=== PATIENT | female | born 1960 | race Caucasian/White ===

== ENCOUNTER → 2018-02-10 | Outpatient (CLI) | payer BC, OTHER | LOC: M RAD 08:58 | DX: Z12.31 Encounter for screening mammogram for malignant neoplasm of breast (principal); Z90.12 Acquired absence of left breast and nipple; Z85.3 Personal history of malignant neoplasm of breast | CPT/HCPCS: 77067 ==

== ENCOUNTER 2018-06-26 11:08 | Day surgery (SDC) | payer BC, OTHER ==
[~2018-06-26] VITALS: Ht 162.6 cm; Wt 93.2 kg
[~2018-06-26 11:08] MED LIST: /FEXO18TA; ASPI81CH32 PO; FERR325T; LIDOCAINE 2% INJ 100 MG/5 ML SDV (FOR ANES.) As Ordered ONE; LISI10TA4; LISI10TA4 PO; MULTIVIT; MULTTAB PO; NS 1,000 ML IV ONE; VENL75TA2; VICO5TAB
[2018-06-26] MEDS ORDERED: PROPOFOL 200 MG/20 ML VIAL As Ordered ONE (12:15)
--- NOTE | 2018-06-26 12:35 | ROOR ---
Patient Name: Yuli Hong Procedure Date: 06/26/2018 12:15 PM Date of : 1960 Age: 57 Room: [facility] Gender: Female Note Status: Finalized Procedure: Colonoscopy Indications: Screening for colorectal malignant neoplasm Providers: Donnie Tomlinson Jr, MD Referring MD: Ning Mathew DO Requesting Provider: Medicines: Propofol per Anesthesia Complications: No immediate complications. Procedure: Pre-Anesthesia Assessment: - Prior to the procedure, a History and Physical was performed, and patient medications and allergies were reviewed. The patient is competent. The risks and benefits of the procedure and the sedation options and risks were discussed with the patient. All questions were answered and informed consent was obtained. Patient identification and proposed procedure were verified by the physician and the nurse in the pre-procedure area and in the procedure room. Mental Status Examination: alert and oriented. Airway Examination: normal oropharyngeal airway and neck mobility. Respiratory Examination: clear to auscultation. CV Examination: normal. ASA Grade Assessment: II - A patient with mild systemic disease. After reviewing the risks and benefits, the patient was deemed in satisfactory condition to undergo the procedure. The anesthesia plan was to use moderate sedation / analgesia (conscious sedation). Immediately prior to administration of medications, the patient was re-assessed for adequacy to receive sedatives. The heart rate, respiratory rate, oxygen saturations, blood pressure, adequacy of pulmonary ventilation, and response to care were monitored throughout the procedure. The physical status of the patient was re-assessed after the procedure. The Colonoscope was introduced through the anus and advanced to the cecum, identified by appendiceal orifice and ileocecal valve. The colonoscopy was performed without difficulty. The patient tolerated the procedure well. The quality of the bowel preparation was adequate. Findings: The rectum, recto-sigmoid colon, sigmoid colon, descending colon, transverse colon, ascending colon, cecum, appendiceal orifice and ileocecal valve appeared normal. Impression: - The rectum, recto-sigmoid colon, sigmoid colon, descending colon, transverse colon, ascending colon, cecum, appendiceal orifice and ileocecal valve are normal. - No specimens collected. Recommendation: - Discharge patient to home (ambulatory). - Repeat colonoscopy in 10 years for screening purposes. Donnie Tomlinson MD Donnie Tomlinson Jr, MD 06/26/2018 12:34:36 PM This report has been signed electronically. Number of Addenda: 0 Note Initiated On: 06/26/2018 12:15 PM Estimated Blood Loss: Estimated blood loss: none.
[2018-06-26 12:55] VITALS: BP 111/73
== END 2018-06-26 13:00 | disposition home or self-care (01) ==
LOC: M OPP 11:08
PROVIDERS: ATTEND Surgery
DX: Z12.11 Encounter for screening for malignant neoplasm of colon (principal); Z79.899 Other long term (current) drug therapy; Z88.2 Allergy status to sulfonamides; Z88.8 Allergy status to other drugs, medicaments and biological substances; Z91.040 Latex allergy status; Z91.048 Other nonmedicinal substance allergy status; J30.2 Other seasonal allergic rhinitis; Z85.3 Personal history of malignant neoplasm of breast; Z92.3 Personal history of irradiation; Z92.21 Personal history of antineoplastic chemotherapy

== ENCOUNTER → 2019-02-11 | Outpatient (CLI) | payer BC, OTHER ==
[~2019-02-11] MED LIST changes: -ASPI81CH32 PO; +ASPI81CH33 PO; -LIDOCAINE 2% INJ 100 MG/5 ML SDV (FOR ANES.) As Ordered ONE; -NS 1,000 ML IV ONE
--- NOTE | 2019-02-11 10:21 | REP ---
UNILATERAL MAMMOGRAM RIGHT BREAST WITH 3D TOMOSYNTHESIS: HISTORY: Left breast cancer and mastectomy. Family history of breast cancer at age 78 in mother. MLO and CC views of the right breast are preformed with 3D tomosynthesis. Comparison 02/10/2018 as well as other prior exams. Mild scattered fibroglandular tissue is unchanged. There is no new mass or clustered microcalcifications. IMPRESSION: ACR 1 negative mammogram right breast in this patient status post left mastectomy. Suggest followup mammogram in one year. BIRADS 1: BI-RADS/ACR category 1 mammogram. Negative Mammogram. This mammogram was interpreted with the aid of an FDA-approved computer-aided detection system. The patient states she had a clinical breast exam in 09/2018. The patient letter being requested is M1. Electronically Signed by Bonifacio Godwin MD 02/11/2019 11:24 A
== END ==
LOC: M RAD 07:57
PROVIDERS: ATTEND Internal Medicine Hematology & Oncology
DX: Z12.31 Encounter for screening mammogram for malignant neoplasm of breast (principal); Z90.12 Acquired absence of left breast and nipple

== ENCOUNTER → 2020-01-07 | Outpatient (CLI) | payer BC ==
--- NOTE | 2020-01-18 11:40 | DEXA ---
AP SPINE L1 - L4 1.203 0.1 1.4 LT FEMUR TOTAL 1.068 0.5 1.5 LT NECK 0.951 -0.6 0.7 RT FEMUR TOTAL 1.041 0.3 1.2 RT NECK 0.935 -0.7 0.6 TOTAL BODY TOTAL OTHER COMMENTS: Normal bone densitometry of the spine and hips. FOLLOW-UP: Recommendation for the next bone density exam: 5 years. CEE
== END ==
LOC: M WHC 12:44
PROVIDERS: ATTEND Orthopaedic Surgery
DX: S22.080D Wedge compression fracture of T11-T12 vertebra, subsequent encounter for fracture with routine healing (principal); X58.XXXD Exposure to other specified factors, subsequent encounter